=== PATIENT | male | born 1990 ===

== ENCOUNTER 2018-12-24 20:35 | Emergency (ER) | payer SELFPAY ==
[2018-12-24 21:54] LABS: Absolute Lymphocytes (CBC) 2.4 K/uL (0.7-4.9); Basophils % 0.3 % (0-1.3); Eosinophils % 2.7 % (0-4.4); Lymphocytes % 29.9 % (15.3-44.8); MPV 8.9 fL (7.6-11.3); Monocytes % 9.2 % (3.3-12.3); RBC Red Blood Cell Count 5.46 M/uL (4.33-5.43)
[2018-12-24 22:22] LABS: ALT/SGPT 57 U/L (12-78); AST/SGOT 25 U/L (15-37); Albumin 4.1 g/dL (3.4-5.0); Alkaline Phosphatase 78 U/L (45-117); BUN Blood Urea Nitrogen 20 mg/dL (7-18); Bicarbonate 32 mmol/L (21-32); Bilirubin Direct 0.1 mg/dL (0-0.2); Bilirubin Total 0.4 mg/dL (0.2-1.0); Glucose Level 85 mg/dL (74-106); Lipase 107 U/L (73-393); Potassium 3.8 mmol/L (3.5-5.1); Protein, Total 7.7 g/dL (6.4-8.2); Sodium Level 143 mmol/L (136-145)
[2018-12-24] MEDS ORDERED: VANCOMYCIN 1 GM/VIAL ONE (22:28)
[2018-12-24] MEDS ORDERED: FENTANYL CITR 100 MCG/2 ML ONE (22:28)
[2018-12-24] MEDS ORDERED: NA CHLORIDE 0.9% 250 ML ONE (22:28)
[2018-12-24] MEDS ORDERED: CEFTRIAXONE/SWI 1gm 1 GM/10 ML SYR ONE (22:28)
[2018-12-25] MEDS ORDERED: FENTANYL CITR 100 MCG/2 ML ONE ×3 (00:30→05:51)
[2018-12-25 02:05] LABS: Urine Blood TRACE (NEG); Urine Glucose NEGATIVE (NEG); Urine Protein NEGATIVE (NEG)
--- NOTE | 2018-12-25 03:16 | ER ---
Nurse's Notes [facility] Name: Sabino Hubbard Age: 28 yrs Sex: Male : 1990 Arrival Date: 12/24/2018 Time: 20:39 Bed 27 Private MD: Diagnosis: Enteric- umbilical fistual Presentation: 12/24 20:44 Presenting complaint: Patient states: "I have a suprapubic catheter to use straight aj1 catheters and its dug through to my bowel system, and I can't relieve myself" Patient reports that he is having fecal matter draining from the site and he is unable to urinate even by cathing himself. Transition of care: patient was not received from another setting of care. Onset of symptoms was December 24, 2018. Risk Assessment: Do you want to hurt yourself or someone else? Patient reports no desire to harm self or others. Initial Sepsis Screen: Does the patient meet any 2 criteria? No. Patient's initial sepsis screen is negative. Does the patient have a suspected source of infection? Yes: Skin breakdown/wound. Care prior to arrival: None. 20:44 Method Of Arrival: Wheelchair aj 20:44 Acuity: DUNIA 3 aj1 Triage Assessment: 20:46 General: Appears in no apparent distress. uncomfortable, Behavior is calm, cooperative, aj1 agitated. Pain: Complains of pain in right upper quadrant, left upper quadrant, right lower quadrant, left lower quadrant and suprapubic area Pain currently is 5 out of 10 on a pain scale. Neuro: Level of Consciousness is awake, alert, obeys commands, Oriented to person, place, time, situation. Cardiovascular: Patient's skin is warm and dry. Respiratory: Airway is patent Respiratory effort is even, unlabored, Respiratory pattern is regular, symmetrical. Historical: - Allergies: 20:46 Sulfa (Sulfonamide Antibiotics); aj1 - Home Meds: 20:46 None [Active]; aj1 - PMHx: 20:46 back fracture; paraplegic; aj1 - PSHx: 20:46 suprapubic access; ear tubes; facial reconstruction; aj1 - Immunization history:: Flu vaccine is not up to date. - Social history:: Smoking status: Patient uses tobacco products, smokes one-half pack cigarettes per day. - Ebola Screening: : Patient denies travel to an Ebola-affected area in the 21 days before illness onset. Screenin:35 Abuse screen: Denies threats or abuse. Denies injuries from another. Nutritional wh screening: No deficits noted. Tuberculosis screening: No symptoms or risk factors identified. Fall Risk None identified. Assessment: 22:02 General: Appears in no apparent distress. Behavior is calm, cooperative, appropriate wh for age. Pain: Complains of pain in abdomen and suprapubic area Pain does not radiate. Pain currently is 7 out of 10 on a pain scale. Quality of pain is described as aching, Pain began 1 day ago. 22:02 Neuro: Level of Consciousness is awake, alert, obeys commands, Oriented to person, wh place, time, situation, Appropriate for age. Cardiovascular: Heart tones S1 S2. Respiratory: Airway is patent Respiratory effort is even, unlabored, Respiratory pattern is regular, symmetrical, Breath sounds are clear bilaterally. GI: Abdomen is flat, non-distended, Bowel sounds present X 4 quads. Abd is soft Abdomen is tender to palpation. : suprapubic catheter Reports murky discharge from straight cath. EENT: No signs and/or symptoms were reported regarding the EENT system. Derm: Skin is intact, is healthy with good turgor. Musculoskeletal: Paraplegic. 23:14 Reassessment: Patient appears in no apparent distress at this time. Patient and/or family updated on plan of care and expected duration. Pain level reassessed. Patient is alert, oriented x 3, equal unlabored respirations, skin warm/dry/pink. Patient states feeling better. 12/25 00:28 Reassessment: Patient appears in no apparent distress at this time. Patient and/or family updated on plan of care and expected duration. Pain level reassessed. Patient is alert, oriented x 3, equal unlabored respirations, skin warm/dry/pink. Patient states feeling better. Patient states symptoms have improved. 01:36 Reassessment: Patient appears in no apparent distress at this time. Patient and/or family updated on plan of care and expected duration. Pain level reassessed. Patient is alert, oriented x 3, equal unlabored respirations, skin warm/dry/pink. Patient states symptoms have improved. 03:03 Reassessment: Patient appears in no apparent distress at this time. Patient and/or family updated on plan of care and expected duration. Pain level reassessed. Patient is alert, oriented x 3, equal unlabored respirations, skin warm/dry/pink. Patient states symptoms have improved. 03:41 Reassessment: Dr Zeng at bedside for discussion of findings and recommendations pt bb states he knows that there is something wrong because when he caths himself fecal matter comes out and his urine is very discolored and it has never been that way before. Dr Zeng states he will consult with the radiologist and discuss findings. 04:10 Reassessment: pt to be transferred for higher level of care pt instructed on need for bb transfer and verbalized understanding of and agrees to plan of care. 05:26 Reassessment: pt resting quietly appears to be sleeping, eyes closed, resp unlabored, bb arouses easily, c/o discomfort to right AC from IV catheter, IV flushed, patent, with good blood return. Pt awaiting transfer to Counts include 234 beds at the [facility] for higher level of care. 05:33 Reassessment: attempted to call report to [facility] transfer center was asked to call bb back in 10 minutes. 05:54 Reassessment: report called to Debbie Arellano RN for room 1050 Counts include 234 beds at the [facility], pt bb awaiting EMS for transfer. 06:16 Reassessment: [facility] at bedside for transfer of pt to Counts include 234 beds at the [facility], pt is A\\T\\O x 4, bb resp unlabored, IV catheters intact, with no erythema or edema noted. Pt's possessions sent with EMS. Vital Signs: 12/24 20:46 BP 142 / 85; Pulse 87; Resp 18; Temp 97.6; Pulse Ox 99% on R/A; Weight 74.84 kg (R); aj1 Height 5 ft. 9 in. (175.26 cm) (R); 22:30 BP 138 / 96; Pulse 85; Resp 18; Pulse Ox 99% on R/A; wh 23:30 BP 130 / 92; Pulse 70; Resp 18; Pulse Ox 99% on R/A; wh 12/25 00:30 BP 106 / 67; Pulse 60; Resp 18; Pulse Ox 99% on R/A; wh 01:30 BP 122 / 55; Pulse 58; Resp 18; Pulse Ox 98% on R/A; wh 03:04 BP 138 / 81; Pulse 63; Resp 18; Pulse Ox 100% ; wh 05:28 BP 98 / 65; Pulse 79; Resp 16 S; Temp 97.8(O); Pulse Ox 99% on R/A; bb 12/24 20:46 Body Mass Index 24.37 (74.84 kg, 175.26 cm) aj1 ED Course: 12/24 20:39 Patient arrived in ED. es 20:45 Triage completed. aj1 20:46 Arm band placed on Patient placed in an exam room. aj1 20:53 Ajit Lemus is Primary Nurse. wh 21:05 Inserted saline lock: 20 gauge in right antecubital area, using aseptic technique. wh Blood collected. 21:24 Oscar Zeng MD is Attending Physician. kdr 22:05 Inserted saline lock: 22 gauge in left antecubital area, using aseptic technique. Blood wh collected. 22:12 Radiology exam delayed due to lab results not completed at this time. (BUN/Creatinine). nj 22:15 Placed in gown. Bed in low position. Call light in reach. Side rails up X 1. Pulse ox wh on. NIBP on. 23:51 CT Abd/Pelvis - IV Contrast Only In Process Unspecified. EDMS 12/25 05:29 No provider procedures requiring assistance completed. Patient transferred, IV remains bb in place. Administered Medications: 12/24 22:27 Drug: vancoMYCIN 1 grams Route: IVPB; Infused Over: 2 hrs; Site: right antecubital; 22:27 Drug: Rocephin - (cefTRIAXone) 1 grams Route: IVPB; Infused Over: 30 mins; Site: right antecubital; 22:27 Drug: fentaNYL (PF) 25 mcg Route: IVP; Site: right antecubital; 12/25 00:13 Follow up: Response: No adverse reaction 02:59 Drug: fentaNYL (PF) 25 mcg Route: IVP; Site: right antecubital; 02:59 Follow up: Response: No adverse reaction 05:47 Drug: fentaNYL (PF) 50 mcg Route: IVP; Site: right antecubital; 06:18 Follow up: Response: No adverse reaction; Pain is decreased bb Outcome: 03:16 Discharge ordered by . kdr 04:14 ER care complete, transfer ordered by . kdr 05:29 Instructed on the need for transfer. bb 05:55 Condition: stable bb 06:17 Transferred by ground EMS to [facility], Transfer form completed. bb X-rays sent w/ patient. 06:18 Patient left the ED. bb Signatures: Dispatcher [employer] Kira Shankar RN RN aj1 Oscar Zeng MD MD kdr Salyer, Edna es Ballard, Brenda, RN RN bb Jordan, Nathan nj Habalo, Winsy Corrections: (The following items were deleted from the chart) 00:25 12/24 22:02 Pain: Complains of pain in abdomen and suprapubic area Pain does not wh radiate. Pain currently is 7 out of 10 on a pain scale. Quality of pain is described as aching, Pain began 1 day ago. 12/25 00:22 Neuro: Level of Consciousness is awake, alert, obeys commands, Oriented to person, place, time, situation, Appropriate for age Cardiovascular: Heart tones S1 S2 [facility] 00:22 Respiratory: Airway is patent Respiratory effort is even, unlabored, Respiratory pattern is regular, symmetrical, Breath sounds are clear bilaterally. : GI: Abdomen is flat, non-distended, Bowel sounds present X 4 quads. Abd is soft wh Abdomen is tender to palpation : : suprapubic catheter Reports murky discharge from straight cath [facility] : EENT: No signs and/or symptoms were reported regarding the EENT system. [facility] : Derm: Skin is intact, is healthy with good turgor, [facility] 00:22 Musculoskeletal: Paraplegic [facility] 12/24 23:14 Reassessment: Patient appears in no apparent distress at this time. Patient wh and/or family updated on plan of care and expected duration. Pain level reassessed. Patient is alert, oriented x 3, equal unlabored respirations, skin warm/dry/pink. Patient states feeling better.
--- NOTE | 2018-12-25 03:17 | EDPHYS ---
Physician Documentation [facility] Name: Sabino Hubbard Age: 28 yrs Sex: Male : 1990 Arrival Date: 12/24/2018 Time: 20:39 Bed 27 Private MD: ED Physician Oscar Zeng HPI: 12/24 23:04 This 28 yrs old Male presents to ER via Wheelchair with complaints of internal bleeding.kdr 23:04 The patient presents with abdominal pain that is diffuse. Onset: The symptoms/episode kdr began/occurred this morning. The symptoms do not radiate. Associated signs and symptoms: Pertinent positives: nausea, Pertinent negatives: blood in stools, chest pain, constipation, diarrhea, dysuria, headache, Apparent fecal material in urine. The symptoms are described as achy, dull, vague. Modifying factors: The symptoms are alleviated by nothing, the symptoms are aggravated by coughing, breathing deeply, movement, touching the area. Severity of pain: At its worst the pain was moderate in the emergency department the pain is unchanged. The patient has not experienced similar symptoms in the past. The patient has not recently seen a physician. Historical: - Allergies: 20:46 Sulfa (Sulfonamide Antibiotics); aj1 - Home Meds: 20:46 None [Active]; aj1 - PMHx: 20:46 back fracture; paraplegic; aj1 - PSHx: 20:46 suprapubic access; ear tubes; facial reconstruction; aj1 - Immunization history:: Flu vaccine is not up to date. - Social history:: Smoking status: Patient uses tobacco products, smokes one-half pack cigarettes per day. - Ebola Screening: : Patient denies travel to an Ebola-affected area in the 21 days before illness onset. ROS: 23:04 Constitutional: Negative for fever, chills, and weight loss, Eyes: Negative for injury, kdr pain, redness, and discharge, Neck: Negative for injury, pain, and swelling, Cardiovascular: Negative for chest pain, palpitations, and edema, Respiratory: Negative for shortness of breath, cough, wheezing, and pleuritic chest pain, Back: Negative for injury and pain, : Negative for injury, bleeding, discharge, and swelling, MS/Extremity: Negative for injury and deformity, Skin: Negative for injury, rash, and discoloration, Neuro: Negative for headache, weakness, numbness, tingling, and seizure activity. Psych: Negative for depression, anxiety, suicide ideation, homicidal ideation, and hallucinations, Allergy/Immunology: Negative for hives, rash, and allergies, Endocrine: Negative for neck swelling, polydipsia, polyuria, polyphagia, and marked weight changes, Hematologic/Lymphatic: Negative for swollen nodes, abnormal bleeding, and unusual bruising. 23:04 Abdomen/GI: Positive for abdominal pain, nausea. 23:04 MS/extremity: Positive for The patient is a paraplegic and self caths through his kdr umbilicus. His injury is at T4 and has poor but not total absent sensation below his diaphram. Exam: 23:04 Constitutional: This is a well developed, well nourished patient who is awake, alert, kdr and in no acute distress. Head/Face: Normocephalic, atraumatic. Eyes: Pupils equal round and reactive to light, extra-ocular motions intact. Lids and lashes normal. Conjunctiva and sclera are non-icteric and not injected. Cornea within normal limits. Periorbital areas with no swelling, redness, or edema. Vital Signs: 20:46 BP 142 / 85; Pulse 87; Resp 18; Temp 97.6; Pulse Ox 99% on R/A; Weight 74.84 kg (R); aj1 Height 5 ft. 9 in. (175.26 cm) (R); 22:30 BP 138 / 96; Pulse 85; Resp 18; Pulse Ox 99% on R/A; wh 23:30 BP 130 / 92; Pulse 70; Resp 18; Pulse Ox 99% on R/A; wh 12/25 00:30 BP 106 / 67; Pulse 60; Resp 18; Pulse Ox 99% on R/A; wh 01:30 BP 122 / 55; Pulse 58; Resp 18; Pulse Ox 98% on R/A; wh 03:04 BP 138 / 81; Pulse 63; Resp 18; Pulse Ox 100% ; wh 05:28 BP 98 / 65; Pulse 79; Resp 16 S; Temp 97.8(O); Pulse Ox 99% on R/A; bb 12/24 20:46 Body Mass Index 24.37 (74.84 kg, 175.26 cm) aj1 MDM: 02:00 Data reviewed: vital signs, nurses notes. ED course: Still awaiting final CT kdr read/revision. 03:16 Patient medically screened. kdr 12/24 21:25 Order name: Basic Metabolic Panel kdr 12/24 21:25 Order name: CBC with Diff kdr 12/24 21:25 Order name: Creatinine for Radiology kdr 12/24 21:25 Order name: Hepatic Function; Complete Time: 22:37 kdr 12/24 21:25 Order name: Lipase; Complete Time: 22:37 kdr 12/24 21:25 Order name: Type And Screen; Complete Time: 02:42 kdr 12/24 21:25 Order name: Basic Metabolic Panel; Complete Time: 22:37 EDMS 12/24 21:25 Order name: CBC with Automated Diff; Complete Time: 22:37 EDMS 12/24 21:25 Order name: Creatinine (Radiology Only); Complete Time: 22:37 EDMS 12/24 22:04 Order name: CT Abd/Pelvis - IV Contrast Only kdr 12/24 22:04 Order name: Blood Culture Adult (2) kdr 12/25 00:17 Order name: Urine Dipstick--Ancillary (enter results); Complete Time: 02:42 cm6 12/25 03:37 Order name: ABO/RH no charge; Complete Time: 04:53 EDMS 12/24 21:25 Order name: IV Saline Lock; Complete Time: 22:09 kdr 12/24 21:25 Order name: Labs collected and sent; Complete Time: 22:09 kdr Administered Medications: 12/24 22:27 Drug: vancoMYCIN 1 grams Route: IVPB; Infused Over: 2 hrs; Site: right antecubital; 22:27 Drug: Rocephin - (cefTRIAXone) 1 grams Route: IVPB; Infused Over: 30 mins; Site: right antecubital; 22:27 Drug: fentaNYL (PF) 25 mcg Route: IVP; Site: right antecubital; 12/25 00:13 Follow up: Response: No adverse reaction 02:59 Drug: fentaNYL (PF) 25 mcg Route: IVP; Site: right antecubital; 02:59 Follow up: Response: No adverse reaction 05:47 Drug: fentaNYL (PF) 50 mcg Route: IVP; Site: right antecubital; 06:18 Follow up: Response: No adverse reaction; Pain is decreased bb Disposition: 12/25/18 04:14 Transfer ordered to [facility]. Diagnosis is Enteric- umbilical fistual. - Reason for transfer: Higher level of care. - Accepting physician is MD. - Condition is Fair. - Problem is new. - Symptoms are unchanged. Signatures: Dispatcher [employer] EDMS Kira Dawson, RN RN aj1 Oscar Zeng MD MD kdr Flaquita Kitchen RN RN bb Ajit Lemus Corrections: (The following items were deleted from the chart) 04:12 03:16 12/25/2018 03:16 Discharged to Home. Impression: Abdominal and pelvic pain; kdr Constipation. Condition is Stable. Forms are Medication Reconciliation Form, Thank You Letter, Antibiotic Education, Prescription Opioid Use. Follow up: Private Physician; When: 2 - 3 days; Reason: If symptoms return, Further diagnostic work-up, Recheck today's complaints, Continuance of care, Re-evaluation by your physician. Problem is new. Symptoms have improved. kdr 06:18 04:14 12/25/2018 04:14 Transfer ordered to [facility]. Diagnosis is bb Enteric- umbilical fistual. Reason for transfer: Higher level of care. Accepting physician is MD. Condition is Fair. Problem is new. Symptoms are unchanged. kdr
--- NOTE | 2018-12-27 11:58 | RAD REPORT ---
EXAM DESCRIPTION: CT - Abdomen Pelvis W Contrast - 12/25/2018 3:27 am ADDENDUM #1 Within the findings section, under urinary bladder, statement should read: The most cephalad portion of the irregular urachus is enlarged and edematous suggesting possible superimposed urinary tract inf ection. Within the impression section, impression #1 should read: evidence of a patent urachus with potential superimposed urinary tract infection along its most cephalad portion. Electronically signed by: Ankur Zelaya MD 12/25/2018 2:33 AM CDT End of Addendum CLINICAL HISTORY: Abdominal pain TECHNIQUE: CT scan of the abdomen and pelvis was performed with intravenous contrast. 5 mm arterial phase axial images of the abdomen were obtained. 5 mm venous phase axial images were obtained along with coronal and sagittal reformatted images. DOSE OPTIMIZATION: This facility uses dose optimization techniques as appropriate to perform exams, including at least one of the following techniques: 1. Automated exposure control. 2. Adjustment of the mA and/or kV according to patient size (this includes techniques or standardized protocols for targeted exams where dose is matched to the indication/reason for exam, i.e. extremiti es or head). 3. Use of iterative reconstructive technique. INTRAVENOUS CONTRAST: Not documented. Please refer to medical record. ORAL CONTRAST: None COMPARISON: None. FINDINGS: Lung Bases: Normal. Liver: Normal. Spleen: Normal. Pancreas: Normal. Gallbladder: Normal. Adrenal Glands: Normal. Kidneys: Normal. Retroperitoneal Structures: Normal. Bowel Survey: There is a large amount residual stool throughout the colon. There is no evidence of fecal impaction. There is stool like material within the distal ileum suggesting bowel stasis. There is evidence of previous appendectomy. There is evidence of previous partial small bowel resection Prostate Gland: Normal in size. Urinary Bladder: There is evidence of an enlarged and patent urachus. The most cephalad portion of the irregular uterus is enlarged and edematous suggesting possible super imposed urinary tract infection. Peritoneal Cavity: Normal. Mesenteric Structures: Normal. Abdominal Wall: No hernia. Bony Structures: No suspicious lesions. IMPRESSION: 1. Evidence of a patency radius with potential superimposed urinary tract infection jennifer g this most cephalad portion. 2. Large amount of residual stool throughout the colon. PQRS: G9551 Electronically signed by: Malcolm Lopez MD 12/25/2018 12:13 AM CDT ADDENDUM #1 Within the findings section, under urinary bladder, statement should read: The most cephalad portion of the irregular urachus is enlarged and edematous suggesting possible superimposed urinary tract inf ection. Within the impression section, impression #1 should read: evidence of a patent urachus with potential superimposed urinary tract infection along its most cephalad portion. Electronically signed by: Ankur Zelaya MD 12/25/2018 2:33 AM CDT ADDENDUM #2 Patient has had a surgically created tract extending from the umbilicus to the bladder. There may be a small fistulous communication between the tip of the cecum (near surgical sutures) and tract (serie s 501, image 57; series 502, image 23) near an area of adjacent stranding. Follow-up contrast evaluat ion of the umbilicus to bladder tract under fluoroscopy or CT study following oral or rectal contrast may be helpful for confirmation. Electronically signed by: Ankur Zelaya MD 12/25/2018 4:07 AM CDT End of Addendum ADDENDUM #1 Within the findings section, under urinary bladder, statement should read: The most cephalad portion of the irregular urachus is enlarged and edematous suggesting possible superimposed urinary tract inf ection. Within the impression section, impression #1 should read: evidence of a patent urachus with potential superimposed urinary tract infection along its most cephalad portion. Electronically signed by: Ankur Zelaya MD 12/25/2018 2:33 AM CDT End of Addendum CLINICAL HISTORY: Abdominal pain TECHNIQUE: CT scan of the abdomen and pelvis was performed with intravenous contrast. 5 mm arterial phase axial images of the abdomen were obtained. 5 mm venous phase axial images were obtained along with coronal and sagittal reformatted images. DOSE OPTIMIZATION: This facility uses dose optimization techniques as appropriate to perform exams, including at least one of the following techniques: 1. Automated exposure control. 2. Adjustment of the mA and/or kV according to patient size (this includes techniques or standardized protocols for targeted exams where dose is matched to the indication/reason for exam, i.e. extremiti es or head). 3. Use of iterative reconstructive technique. INTRAVENOUS CONTRAST: Not documented. Please refer to medical record. ORAL CONTRAST: None COMPARISON: None. FINDINGS: Lung Bases: Normal. Liver: Normal. Spleen: Normal. Pancreas: Normal. Gallbladder: Normal. Adrenal Glands: Normal. Kidneys: Normal. Retroperitoneal Structures: Normal. Bowel Survey: There is a large amount residual stool throughout the colon. There is no evidence of fecal impaction. There is stool like material within the distal ileum suggesting bowel stasis. There is evidence of previous appendectomy. There is evidence of previous partial small bowel resection Prostate Gland: Normal in size. Urinary Bladder: There is evidence of an enlarged and patent urachus. The most cephalad portion of the irregular uterus is enlarged and edematous suggesting possible super imposed urinary tract infection. Peritoneal Cavity: Normal. Mesenteric Structures: Normal. Abdominal Wall: No hernia. Bony Structures: No suspicious lesions. IMPRESSION: 1. Evidence of a patency radius with potential superimposed urinary tract infection jennifer g this most cephalad portion. 2. Large amount of residual stool throughout the colon. PQRS: [id number] Electronically signed by: Malcolm Lopez MD 12/25/2018 12:13 AM CDT Due to temporary technical issues with the PACS/Fluency reporting system, reports are being signed by the in house radiologist as a courtesy to ensure prompt reporting. The interpreting radiologist is f ully responsible for the content of the report.
== END 2018-12-25 06:18 | disposition short-term general hospital (02) ==
LOC: ER 20:35
DX: K63.2 Fistula of intestine (principal); F17.210 Nicotine dependence, cigarettes, uncomplicated; G82.20 Paraplegia, unspecified; Z88.2 Allergy status to sulfonamides
CPT/HCPCS: 36415; 74177; 80048; 80076; 81003; 83690; 85025; 86850; 86900; 86901; 87040; 96374; 96375; 99285; J0696; J3010; Q9967